=== PATIENT | female | born 1965 | race Caucasian/White ===

== ENCOUNTER → 2021-01-13 | Outpatient (CLI) | payer OTHER ==
--- NOTE | 2021-01-13 12:18 | SFUN ---
SLEEP CENTER FOLLOW UP NOTE DATE OF SERVICE: 01/13/2021 55-year-old lady has been followed in Sleep Center for treatment of obstructive sleep apnea-hypopnea syndrome. The patient continues to use her CPAP equipment every night, getting her supplies in time. No snoring according to patient. [place] Sleepiness Scale is zero. I checked CPAP unit. Range of the pressure 5-12 with average pressure 11 cm of water. Usage is 30/30 nights for more than 4 hours with average usage 8.5 hours per night. Leak is 12 L/minute which is in normal acceptable range. Apnea-hypopnea index only 1.5 which is normal. MEDICATIONS: Lisinopril 20 mg once a day. PHYSICAL EXAMINATION: GENERAL: Patient in no distress. BP 165/97, HR 84. RR 14, height 4 feet 11-3/4 inches, weight 130 pounds, body mass index 25.8, temperature 97.0, oxygen saturation at room air 100%. Oropharynx moderately low position of soft palate, Mallampati 3. NECK: Supple, no JVD. Thyroid is not palpable. LUNGS: Clear to percussion and to auscultation. Good air exchange. No wheezing or rhonchi. HEART: S1, S2 regular. No murmurs, gallops, or rubs. ABDOMEN: Soft and nontender. Bowel sounds are present. No organomegaly appreciated. EXTREMITIES: No clubbing or cyanosis. STUDENT ACCOUNTS COORDINATOR: Awake, alert, and oriented X3. Cranial nerves 2 to 7 intact. There is no fasciculation or atrophy. noted. No focal deficits observed. IMPRESSION: 1. Obstructive sleep apnea-hypopnea syndrome patient demonstrated 100% compliance with treatment benefitting from treatment. 2. Hypertension. 3. History of migraine. 4. History of allergic reactions to perfumes. 5. Menopause. PLAN: 1. Patient will continue to use PAP equipment every night for the whole night. 2. Sleep hygiene with regular time in bed for at least 7-1/2 to 8 hours. 3. Precautions related to driving. No driving if feeling sleepiness. 4. I will maintain all necessary prescription for PAP supplies including mask, tube, filters. 5. Watching weight. 6. Follow-up visit in 6 months or earlier if patient has any problems. Thank you very much for allowing me to participate in management of your patient. Sincerely, Eber Hussein MD, PhD, FAASM Diplomat of [employer] Sleep Medicine Board of [place] [employer] Casino Supervisor of [facility] [place] MMLUIS / ANTHONY: [id number] /
== END | disposition home or self-care (01) ==
LOC: SLEEP 10:57 → MERGE 11:00
PROVIDERS: ATTEND Internal Medicine
DX: G47.33 Obstructive sleep apnea (adult) (pediatric) (principal); I10 Essential (primary) hypertension; Z78.0 Asymptomatic menopausal state; Z86.69 Personal history of other diseases of the nervous system and sense organs; Z91.048 Other nonmedicinal substance allergy status; Z99.89 Dependence on other enabling machines and devices

== ENCOUNTER → 2021-07-14 | Outpatient (CLI) | payer OTHER ==
--- NOTE | 2021-07-14 20:45 | SFUN ---
SLEEP CENTER FOLLOW UP NOTE DATE OF SERVICE: 07/14/2021 This 55-year-old lady has been followed in Sleep Center for treatment of obstructive sleep apnea-hypopnea syndrome. The patient continues to use her CPAP equipment every night for the whole night and is getting her CPAP supplies on time. She is changing her air filter. I checked her CPAP unit. Range of the pressure is 5 to 12, average, 11.7, usage 30/30 nights for more than 4 hours, average 7.3 hours per night. Leak is 20 L/minute. Apnea- hypopnea index is 1.7, which is normal. MEDICATIONS: Lisinopril 40 mg once a day. PHYSICAL EXAMINATION: GENERAL: Pleasant patient in no distress. VITAL SIGNS: BP 182/94, HR 92, RR 16, height 4 feet 11-3/4 inches, weight 120.4 pounds, temperature 97.4, oxygen saturation at room air 99%. HEENT: PERRLA, EOMI, evaluation of oropharynx showed tongue protrudes midline. Moderately low position of soft palate; Mallampati III. NECK: Supple, no JVD. Thyroid is not palpable. LUNGS: Clear to percussion and to auscultation. Good air exchange. No wheezing or rhonchi. HEART: S1, S2 regular. No murmurs, gallops, or rubs. ABDOMEN: Soft and nontender. Bowel sounds are present. No organomegaly appreciated. EXTREMITIES: No clubbing or cyanosis. PSYCHOLOGIST EXPERIMENTAL: Awake, alert, and oriented X3. Cranial nerves 2 to 7 intact. There is no fasciculation or atrophy. noted. No focal deficits observed. IMPRESSION: 1. Obstructive sleep apnea-hypopnea syndrome. Patient demonstrated 100% compliance with treatment, benefitting from treatment. 2. Hypertension. 3. History of migraine. 4. History of allergic reaction to perfumes. 5. Menopause. PLAN: 1. Patient will continue to use PAP equipment every night for the whole night. 2. Sleep hygiene with regular time in bed for at least 7-1/2 to 8 hours. 3. Precautions related to driving. No driving if feeling sleepiness. 4. I will maintain all necessary prescription for PAP supplies including mask, tube, filters. 5. Watching weight. 6. Follow-up visit in 6 months or earlier if patient has any problems. Thank you very much for allowing me to participate in the management of your patient. Sincerely, Eber Hussein MD, PhD, FAASM Diplomat of [employer] Sleep Medicine Board of [employer] Bill Adjuster of [facility] [place] TERESA / ANTHONY: [phone] /
== END ==
LOC: SLEEP 11:26
PROVIDERS: ATTEND Internal Medicine
DX: G47.33 Obstructive sleep apnea (adult) (pediatric) (principal); I10 Essential (primary) hypertension; Z78.0 Asymptomatic menopausal state; Z86.69 Personal history of other diseases of the nervous system and sense organs; Z91.09 Other allergy status, other than to drugs and biological substances; Z99.89 Dependence on other enabling machines and devices

== ENCOUNTER 2024-04-17 18:24 | Emergency (ER) | payer OTHER ==
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
--- NOTE | 2024-04-17 20:07 | XR ---
EXAMINATION TYPE: XR chest 2V DATE OF EXAM: 04/17/2024 CLINICAL HISTORY: Chest pain TECHNIQUE: Frontal and lateral views of the chest are obtained. COMPARISON: None FINDINGS: There is no focal air space opacity, pleural effusion, or pneumothorax seen. The cardiac silhouette size is within normal limits. The osseous structures are intact. IMPRESSION: No acute cardiopulmonary process. [facility], , 04/17/2024 8:05 PM
[2024-04-17] MEDS: CYCLOBENZAPRINE 5 MG TAB PO STA (21:53)
[2024-04-17 21:58] VITALS: BP 165/108; PULSE 86; RESP 18; TEMP 97.8
== END 2024-04-17 22:20 | disposition home or self-care (01) ==
LOC: EC 18:24
DX: S30.1XXA Contusion of abdominal wall, initial encounter (principal); I10 Essential (primary) hypertension; R07.89 Other chest pain; Z88.0 Allergy status to penicillin; V49.50XA Passenger injured in collision with unspecified motor vehicles in traffic accident, initial encounter; Y92.410 Unspecified street and highway as the place of occurrence of the external cause
CPT/HCPCS: 71046; 93005; 99284

== ENCOUNTER → 2024-05-01 | Outpatient (CLI) | payer OTHER ==
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
== END | disposition home or self-care (01) ==
LOC: RADXRMAIN 15:48
PROVIDERS: ATTEND Family Medicine
DX: M50.30 Other cervical disc degeneration, unspecified cervical region (principal)
CPT/HCPCS: 72040

== ENCOUNTER → 2024-12-08 | Outpatient (CLI) | payer OTHER ==
--- NOTE | 2024-12-09 14:37 | MM ---
Reason for Exam: Screening (asymptomatic). Patient History: Menarche at age 13. Patient has no children. Postmenopausal. Maternal grandmother had breast cancer. Maternal cousin had breast cancer. Risk Values: Wanda 5 year model risk: 1.5%. NCI Lifetime model risk: 8.3%. Prior Study Comparison: No prior studies available for comparison. Tissue Density: The breasts are heterogeneously dense, which may obscure small masses. Findings: Analyzed By CAD. There is no suspicious group of microcalcifications or new suspicious mass in either breast. Overall Assessment: Negative, BI-RAD 1 Management: Screening Mammogram of both breasts in 1 year. . Patient should continue monthly self-breast exams. A clinical breast exam by your physician is recommended on an annual basis. This exam should not preclude additional follow-up of suspicious palpable abnormalities. Note on Wanda scores and lifetime risk: 1. A Wanda score greater than 3% is considered moderate risk. If this is the case, consider specialist referral to assess eligibility for a risk reducing agent. 2. If overall lifetime risk for the development of breast cancer is 20% or higher, the patient may qualify for future screening with alternating mammogram and breast MRI. [facility], , 12/09/2024 2:34 PM. Electronically signed and approved by: Trent Mesa M.D. Radiologis
== END | disposition home or self-care (01) ==
LOC: RADMAMWWP 15:33
PROVIDERS: ATTEND Obstetrics & Gynecology
DX: Z12.31 Encounter for screening mammogram for malignant neoplasm of breast (principal); R92.333 Mammographic heterogeneous density, bilateral breasts; Z78.0 Asymptomatic menopausal state; Z80.3 Family history of malignant neoplasm of breast
CPT/HCPCS: 77063; 77067